=== PATIENT | male | born 1980 | race Asian ===

== ENCOUNTER 2016-08-23 11:11 | Emergency (ER) | payer BC ==
[~2016-08-23] VITALS: Ht 172.7 cm; Wt 70.5 kg
[2016-08-23 11:13] VITALS: BP 171/83; TEMP 99.9
[2016-08-23] MEDS ORDERED: ZITHROMAX Z PA250 MG PO (12:17)
[2016-08-23 12:30] VITALS: PULSE 82
== END 2016-08-23 12:30 | disposition home or self-care (01) ==
LOC: COL.ER 11:11
DX: J40 Bronchitis, not specified as acute or chronic (principal)

== ENCOUNTER 2016-09-07 10:00 | Emergency (ER) | payer BC ==
[~2016-09-07] VITALS: Ht 172.7 cm; Wt 68.2 kg
[~2016-09-07 10:00] MED LIST: ZITHROMAX Z PA250 MG PO
[2016-09-07 10:06] VITALS: BP 122/86; PULSE 76; TEMP 97.7
[2016-09-07] MEDS ORDERED: PREDNISONE20 MG PO (10:45)
== END 2016-09-07 10:51 | disposition home or self-care (01) ==
LOC: COL.ER 10:00
DX: R05 Cough (principal); R09.89 Other specified symptoms and signs involving the circulatory and respiratory systems